=== PATIENT | male | born 1970 | race Caucasian/White ===

== ENCOUNTER 2020-05-09 08:39 | Observation (INO) | payer BC ==
[2020-05-09] MEDS ORDERED: MORPHINE 2 MG/ML SYR IV PRN (09:05)
[2020-05-09] MEDS ORDERED: ONDANSETRON 4 MG/2 ML VIAL IV PRN (09:05)
[2020-05-09] MEDS ORDERED: ACETAMINOPHEN 500 MG TAB PO PRN (09:05)
--- NOTE | 2020-05-09 09:06 | ER ---
Nurse's Notes [facility] Name: Vishnu Pierre Age: 50 yrs Sex: Male : 1970 Arrival Date: 05/09/2020 Time: 08:41 Bed 6 Private MD: Diagnosis: Cellulitis of right lower limb;Fail outpatient therapy Presentation: 05/09 08:49 Chief complaint: Patient states: RLE redness/infection x 10 days. Reports he was on an sv abx and finished it yesterday for cellulitis. Reports that the redness improved but then got worse again. Coronavirus screen: Client denies travel out of the [place] in the last 14 days. At this time, the client does not indicate any symptoms associated with coronavirus-19. Ebola Screen: No symptoms or risks identified at this time. Initial Sepsis Screen: Does the patient meet any 2 criteria? HR > 90 bpm. No. Patient's initial sepsis screen is negative. Does the patient have a suspected source of infection? Yes: Skin breakdown/wound. Risk Assessment: Do you want to hurt yourself or someone else? Patient reports no desire to harm self or others. Onset of symptoms was April 2020. 08:49 Method Of Arrival: Ambulatory sv 08:49 Acuity: PAM 3 sv Triage Assessment: 08:52 General: Appears in no apparent distress. comfortable, obese, well developed, Behavior sv is calm, cooperative, appropriate for age. Pain: Complains of pain in right knee, right sidhu and anterior aspect of right ankle Pain currently is 5 out of 10 on a pain scale. Pain began 10 days ago Is intermittent. Neuro: Level of Consciousness is awake, alert, obeys commands, Oriented to person, place, time, situation, Moves all extremities. Full function Gait is steady. Respiratory: Airway is patent Respiratory effort is even, unlabored, Respiratory pattern is regular, symmetrical. Derm: Skin is pink, warm \T\ dry. redness noted to RLE and swelling. Historical: - Allergies: 08:52 Betadine; sv 08:52 unknown abx; sv - PMHx: 08:52 Diabetes - NIDDM; Hypertension; sv - PSHx: 08:52 Knee surgery; Tonsillectomy; foot; sv - Immunization history:: Adult Immunizations up to date, Last tetanus immunization: up to date. - Social history:: Smoking status: . Screenin:54 Abuse screen: Denies threats or abuse. Denies injuries from another. Nutritional sv screening: No deficits noted. Tuberculosis screening: No symptoms or risk factors identified. Fall Risk None identified. Assessment: 09:25 Reassessment: Patient appears in no apparent distress at this time. No changes from sv previously documented assessment. Patient and/or family updated on plan of care and expected duration. Pain level reassessed. Patient is alert, oriented x 3, equal unlabored respirations, skin warm/dry/pink. 09:39 Reassessment: Ultrasound at the bedside. sv 10:31 Reassessment: Patient appears in no apparent distress at this time. No changes from sv previously documented assessment. Patient and/or family updated on plan of care and expected duration. Pain level reassessed. Patient is alert, oriented x 3, equal unlabored respirations, skin warm/dry/pink. 10:32 Reassessment: Attempted to call report, nurse unavailable. sv Vital Signs: 08:49 BP 141 / 98; Pulse 107; Resp 20; Temp 98.3(O); Pulse Ox 96% ; Weight 124.74 kg; Height sv 6 ft. 1 in. (185.42 cm); Pain 5/10; 10:31 BP 151 / 90; Pulse 87; Resp 18; Pulse Ox 97% ; sv 10:56 BP 132 / 93; Pulse 88; Resp 18; Pulse Ox 99% ; sv 08:49 Body Mass Index 36.28 (124.74 kg, 185.42 cm) sv ED Course: 08:41 Patient arrived in ED. ds1 08:43 Ashley Light RN is Primary Nurse. sv 08:43 Chalo Mendoza MD is Attending Physician. kdr 08:51 Triage completed. sv 08:52 ED physician to see patient. sv 08:52 Arm band placed on. sv 08:54 Patient has correct armband on for positive identification. Bed in low position. Call sv light in reach. Pulse ox on. NIBP on. Door closed. Head of bed elevated. 09:00 Second set of blood cultures drawn by me. sv 09:05 Ny Mondragon MD is Hospitalizing Provider. kdr 09:10 First set of blood cultures drawn by me. Inserted saline lock: 20 gauge in left hand, sv using aseptic technique. Blood collected. Flushed left hand with 5 ml normal saline. 09:29 Chem 7 Sent. sv 09:29 CBC with Diff Sent. sv 09:29 Blood Culture Adult (2) Sent. sv 09:34 Awaiting bed assignment. sv 10:38 No provider procedures requiring assistance completed. Patient admitted, IV remains in sv place. intact. 10:57 US Extremity Venous Unilateral Ltd Sent. sv Administered Medications: 10:27 Drug: LevaQUIN 750 mg Route: PO; sv 10:57 Follow up: Response: No adverse reaction sv 10:27 Drug: vancoMYCIN 1.5 grams Route: IVPB; Rate: calculated rate; Site: left hand; sv 10:57 Follow up: Response: No adverse reaction; IV Status: Infusion continued upon admission sv 10: Drug: TORadol - Ketorolac 15 mg Route: IVP; Site: left hand; sv 10:57 Follow up: Response: No adverse reaction sv Outcome: 09:06 Decision to Hospitalize by Provider. kdr 10:52 Admitted to Med/surg accompanied by tech, via wheelchair, room 408, with chart, Report sv called to [facility] 10:52 Condition: stable 10:52 Instructed on the need for admit. 10:56 Patient left the ED. sv Signatures: Ashley Light RN RN sv Chalo Mendoza MD MD kdr Sanford, Demi ds1
--- NOTE | 2020-05-09 09:06 | EDPHYS ---
Physician Documentation [facility] Name: Vishnu Pierre Age: 50 yrs Sex: Male : 1970 Arrival Date: 05/09/2020 Time: 08:41 Bed 6 Private MD: ED Physician Chalo Mendoza HPI: 05/09 09:07 This 50 yrs old Male presents to ER via Ambulatory with complaints of Leg kdr Pain. 09:07 The patient presents with pain, that is acute, swelling, tenderness. The complaints kdr affect the lateral aspect of right calf, right ankle, right calf, right Achilles, medial aspect of right calf, right sidhu and anterior aspect of right ankle. Context: The problem was sustained at home, resulted from a penetrating injury, States that about two weeks ago he had a thorn in his leg. He began to get infected and he "dug it out" with his pocket knife. Subsequently it began to get more red so he sought treatment in [facility]. His was put on an abx that may have been Clindamycin TID. This morning, he felt the leg was more red, painful and swollen.. 11:31 Onset: The symptoms/episode began/occurred gradually, 2 week(s) ago. Modifying factors: kdr The symptoms are alleviated by nothing. the symptoms are aggravated by movement, weight bearing. Associated signs and symptoms: The patient has no apparent associated signs or symptoms. Treatment prior to arrival includes: prescription medications, Likely Clinda 300 mg PO TID for 10 days. Severity of symptoms: At their worst the symptoms were mild, in the emergency department the symptoms are unchanged. The patient has not experienced similar symptoms in the past. The patient has been recently seen by a physician: [facility] Historical: - Allergies: 08:52 Betadine; sv 08:52 unknown abx; sv - PMHx: 08:52 Diabetes - NIDDM; Hypertension; sv - PSHx: 08:52 Knee surgery; Tonsillectomy; foot; sv - Immunization history:: Adult Immunizations up to date, Last tetanus immunization: up to date. - Social history:: Smoking status: . ROS: 11:31 Constitutional: Negative for fever, chills, and weight loss, Eyes: Negative for injury, kdr pain, redness, and discharge, Neck: Negative for injury, pain, and swelling, Cardiovascular: Negative for chest pain, palpitations, and edema, Respiratory: Negative for shortness of breath, cough, wheezing, and pleuritic chest pain, Abdomen/GI: Negative for abdominal pain, nausea, vomiting, diarrhea, and constipation, Back: Negative for injury and pain, : Negative for injury, bleeding, discharge, and swelling, Neuro: Negative for headache, weakness, numbness, tingling, and seizure activity. Psych: Negative for depression, anxiety, suicide ideation, homicidal ideation, and hallucinations, Allergy/Immunology: Negative for hives, rash, and allergies, Endocrine: Negative for neck swelling, polydipsia, polyuria, polyphagia, and marked weight changes, Hematologic/Lymphatic: Negative for swollen nodes, abnormal bleeding, and unusual bruising. 11:31 MS/extremity: Positive for erythema, pain, swelling, tenderness, warmth. Exam: 11:31 Constitutional: This is a well developed, well nourished patient who is awake, alert, kdr and in no acute distress. Head/Face: Normocephalic, atraumatic. Eyes: Pupils equal round and reactive to light, extra-ocular motions intact. Lids and lashes normal. Conjunctiva and sclera are non-icteric and not injected. Cornea within normal limits. Periorbital areas with no swelling, redness, or edema. Neck: Trachea midline, no thyromegaly or masses palpated, and no cervical lymphadenopathy. Supple, full range of motion without nuchal rigidity, or vertebral point tenderness. No Meningismus. Chest/axilla: Normal chest wall appearance and motion. Nontender with no deformity. No lesions are appreciated. Cardiovascular: Regular rate and rhythm with a normal S1 and S2. No gallops, murmurs, or rubs. Normal PMI, no JVD. No pulse deficits. Respiratory: Lungs have equal breath sounds bilaterally, clear to auscultation and percussion. No rales, rhonchi or wheezes noted. No increased work of breathing, no retractions or nasal flaring. Abdomen/GI: Soft, non-tender, with normal bowel sounds. No distension or tympany. No guarding or rebound. No evidence of tenderness throughout. Back: No spinal tenderness. No costovertebral tenderness. Full range of motion. Neuro: Awake and alert, GCS 15, oriented to person, place, time, and situation. Cranial nerves II-XII grossly intact. Motor strength 5/5 in all extremities. Sensory grossly intact. Cerebellar exam normal. Normal gait. Psych: Awake, alert, with orientation to person, place and time. Behavior, mood, and affect are within normal limits. 11:31 Musculoskeletal/extremity: Extremities: grossly normal except: noted in the lateral aspect of right calf, right ankle, right calf, right Achilles, medial aspect of right calf, right sidhu and anterior aspect of right ankle: ROM: no acute changes, Circulation is intact in all extremities. Sensation intact. Weight bearing: able to fully bear weight, mild pain with walking. Vital Signs: 08:49 BP 141 / 98; Pulse 107; Resp 20; Temp 98.3(O); Pulse Ox 96% ; Weight 124.74 kg; Height sv 6 ft. 1 in. (185.42 cm); Pain 5/10; 10:31 BP 151 / 90; Pulse 87; Resp 18; Pulse Ox 97% ; sv 10:56 BP 132 / 93; Pulse 88; Resp 18; Pulse Ox 99% ; sv 08:49 Body Mass Index 36.28 (124.74 kg, 185.42 cm) sv MDM: 09:06 Patient medically screened. kdr 11:31 Data reviewed: vital signs, nurses notes, old medical records, radiologic studies. kdr Counseling: I had a detailed discussion with the patient and/or guardian regarding: the historical points, exam findings, and any diagnostic results supporting the discharge/admit diagnosis, lab results, radiology results, the need for further work-up and treatment in the hospital. 05/09 09:01 Order name: Blood Culture Adult (2) kdr 05/09 09:01 Order name: CBC with Diff kdr 05/09 09:01 Order name: Chem 7 kdr 05/09 09:01 Order name: US Extremity Venous Unilateral Ltd kdr 05/09 09:28 Order name: CBC with Automated Diff; Complete Time: 11:37 EDMS 05/09 09:38 Order name: Basic Metabolic Panel; Complete Time: 11:37 EDMS 05/09 10:06 Order name: US; Complete Time: 11:37 EDMS Administered Medications: : Drug: LevaQUIN 750 mg Route: PO; sv 10:57 Follow up: Response: No adverse reaction sv 10:27 Drug: vancoMYCIN 1.5 grams Route: IVPB; Rate: calculated rate; Site: left hand; sv 10:57 Follow up: Response: No adverse reaction; IV Status: Infusion continued upon admission sv 10:27 Drug: TORadol - Ketorolac 15 mg Route: IVP; Site: left hand; sv 10:57 Follow up: Response: No adverse reaction sv Disposition: 05/09/20 09:06 Hospitalization ordered by Ny Mondragon for Observation. Preliminary diagnosis are Cellulitis of right lower limb, Fail outpatient therapy. - Bed requested for Telemetry/MedSurg (observation). - Status is Observation. sv - Condition is Fair. - Problem is an ongoing problem. - Symptoms have worsened. Signatures: Dispatcher [employer] Ashley Bain RN RN sv Rittger, Kevin, MD MD [facility] Tiffany Fajardo RN RN Lesvia Escamilla Corrections: (The following items were deleted from the chart) 10:29 09:06 Hospitalization Ordered by Ny Mondragon MD for Observation. Preliminary eb diagnosis is Cellulitis of right lower limb; Fail outpatient therapy. Bed requested for Telemetry/MedSurg (observation). Status is Observation. Condition is Fair. Problem is an ongoing problem. Symptoms have worsened. kdr 10:56 10:29 05/09/2020 09:06 Hospitalization Ordered by Ny Mondragon MD for Observation. sv Preliminary diagnosis is Cellulitis of right lower limb; Fail outpatient therapy. Bed requested for Telemetry/MedSurg (observation). Status is Observation. Condition is Fair. Problem is an ongoing problem. Symptoms have worsened. eb
[2020-05-09] MEDS ORDERED: VANCOMYCIN/NS 1 gm 1 GM/250 ML BAG IVPB SCH (09:15)
[2020-05-09 09:25] LABS: Absolute Lymphocytes (CBC) 1.4 K/uL (0.7-4.9); Hematocrit 44.6 % (39.6-49.0); Lymphocytes % 32.3 % (15.3-44.8); MPV 8.9 fL (7.6-11.3); RBC Red Blood Cell Count 5.14 M/uL (4.33-5.43)
[2020-05-09] MEDS ORDERED: levoFLOXacin 750 MG TAB ONE (09:30)
[2020-05-09] MEDS ORDERED: KETOROLAC 30 MG/ML INJ ONE (09:31)
[2020-05-09 09:38] LABS: Potassium 3.7 mmol/L (3.5-5.1)
[2020-05-09] MEDS: Levofloxacin500mg IV 500 MG/100 ML BAG IV SCH (10:00)
[2020-05-09] MEDS ORDERED: VANCOMYCIN 1.5 GM in NA CHLORIDE 0.9% 500 ML IVPB ONE (10:00)
--- NOTE | 2020-05-09 10:06 | RAD REPORT ---
EXAM DESCRIPTION: US - Extremity Venous Uni Ltd - 05/09/2020 10:00 am CLINICAL HISTORY: Pain;Swellingright leg COMPARISON: None. TECHNIQUE: Real-time sonographic evaluation of the right lower extremity deep venous systems was per formed. FINDINGS: Normal compressibility, flow augmentation, phasic flow and spontaneous flow are identified in the right lower extremity common femoral, superficial femoral, popliteal and posterior tibial vei ns. No intraluminal filling defects seen. IMPRESSION: No DVT in the right lower extremity.
[2020-05-09 12:00] VITALS: BMI 36.3
[2020-05-09] MEDS ORDERED: INSULIN 70/30 100 UNITS/ML SQ ONE (12:58)
[2020-05-09] MEDS ORDERED: D50W 25 GM/50 ML SYRINGE/VIAL IV PRN ×2 (12:58→21:00)
[2020-05-09] MEDS ORDERED: VANCOMYCIN 500 MG in NA CHLORIDE 0.9% 100 ML IVPB SCH (13:00)
[2020-05-09] MEDS ORDERED: PNEUMOCOCCAL VACCINE 0.5 ML IMVAC ONE (14:00)
[2020-05-09] MEDS ORDERED: FUROSEMIDE 40 MG/4 ML VIAL IV ONE (15:28)
--- NOTE | 2020-05-09 16:37 | P.HP ---
Certification for Inpatient Patient admitted to: Observation With expected LOS: <2 Midnights Patient will require the following post-hospital care: None Practitioner: I am a practitioner with admitting privileges, knowledge of patient current condition, hospital course, and medical plan of care. Services: Services provided to patient in accordance with Admission requirements found in Title 42 Section 412.3 of the Code of Federal Regulations Patient History Date of Service: 05/09/20 Reason for admission: Right lower extremity cellulitis History of Present Illness: Patient is a 50-year-old gentleman who has a history of diabetes and a recent diagnosis of cellulitis of the right leg. He apparently had a towards and is right GN and he was that of find it for a couple weeks. When he is able to find it he had developed a slight infection. He used a knife to get the the thorn out in hopes that the infection would clear up. However, a got significantly worse. He went to the [facility] and they gave him clindamycin. The clindamycin help get rid of some of the erythema. He was doing better and he had finished his last dose yesterday. However, his right lower extremity started swelling up. It also started getting more erythematous. Patient decided to go to the emergency room. Patient had a venous Doppler performed. Doppler in the emergency room was negative. Patient has some mild cellulitis with significant edema. Will diurese him. Most likely cause of the edema is most likely venous insufficiency. Venous Dopplers did not really evaluate iliac vein thrombus is well so if the edema does not improve with diuresing then we may need to do further studies to investigate the iliac vein. He does admit to taking more Celebrexs than normal. Will check a UA with microscopy to evaluate for proteinuria. If it is significantly elevated then may need further workup for nephrotic syndrome. BNP level is pending. Patient will be admitted to the hospital for cellulitis of the right lower extremity with surrounding edema. Allergies povidone-iodine [From Betadine] Allergy (Verified 05/09/20 11:41) Hives/Rash soap [From Betadine] Allergy (Verified 05/09/20 10:35) Hives/Rash Home Medications: Allopurinol 300 mg PO DAILY 05/09/20 Celecoxib [Celebrex] 100 mg PO DAILY 05/09/20 Cetirizine HCl [Zyrtec*] 5 mg PO BEDTIME 05/09/20 Citalopram [Celexa*] 10 mg PO DAILY 05/09/20 Insulin Glargine,Hum.rec.anlog [Basaglar Kwikpen U-100] 80 unit SQ BEDTIME 05/09/20 Insulin Lispro [Humalog*] 60 unit SQ TIDWM 05/09/20 Loratadine [Claritin] 10 mg PO DAILY 05/09/20 Losartan Potassium [Cozaar] 100 mg PO DAILY 05/09/20 Metformin HCl 1,000 mg PO BID 05/09/20 Omeprazole 20 mg PO DAILY 05/09/20 Pioglitazone HCl [Actos] 15 mg PO DAILY 05/09/20 Rosuvastatin Calcium [Crestor] 10 mg PO DAILY 05/09/20 Sitagliptin Phosphate [Januvia*] 100 mg PO DAILY 05/09/20 hydroCHLOROthiazide [Hydrochlorothiazide] 25 mg PO DAILY 05/09/20 - Past Medical/Surgical History Has patient received pneumonia vaccine in the past: No Diabetic: Yes -: IDDM since 2012 -: obesity -: surgery on left foot -: Bilateral knee replacement -: Tonsillectomy - Family History Mother Medical History: Heart disease, Diabetes Father Medical History: Cancer - Social History Smoking Status: Never smoker Alcohol use: No CD- Drugs: No Caffeine use: Yes Place of Residence: Home Review of Systems 10-point ROS is otherwise unremarkable Physical Examination - Vital Signs Temperature: 97.6 F Blood Pressure: 150/82 Pulse: 91 Respirations: 16 Pulse Ox (%): 95 - Physical Exam General: Alert, In no apparent distress, Oriented x3 HEENT: Atraumatic, PERRLA, Mucous membr. moist/pink, EOMI, Sclerae nonicteric Neck: Supple, 2+ carotid pulse no bruit, No LAD, Without JVD or thyroid abnormality Respiratory: Clear to auscultation bilaterally, Normal air movement Cardiovascular: Regular rate/rhythm, Normal S1 S2, No murmurs Gastrointestinal: Normal bowel sounds, Soft and benign, Non-distended, No tenderness Musculoskeletal: No clubbing, Swelling, Erythema, Tenderness Integumentary: No rashes, Tenderness/swelling, Erythema, Warmth Neurological: Normal gait, Normal speech, Normal strength at 5/5 x4 extr, Normal tone, Sensation intact, Cranial nerves 3-12 intact, Normal affect Lymphatics: No axilla or inguinal lymphadenopathy - Studies Laboratory Data (last 24 hrs) 05/09/20 09:10: Sodium 140, Potassium 3.7, BUN 20 H, Creatinine 0.94, Glucose 316 H 05/09/20 09:10: WBC 4.3, Hgb 15.4, Hct 44.6, Plt Count 128 L Assessment & Plan - Problems (Diagnosis) (1) Cellulitis of right lower extremity Current Visit: Yes Status: Acute (2) Bilateral lower extremity edema Current Visit: Yes Status: Acute (3) History of diabetes mellitus, type II Current Visit: Yes Status: Acute (4) Morbid obesity Current Visit: Yes Status: Acute (5) Encounter for monitoring West-2 selective NSAID therapy Current Visit: Yes Status: Acute - Plan 1. Continue with IV antibiotic; you recent clindamycin use it. Monitor for diarrhea 2. Continue with diuresing 3. Check BNP and urine with microscopy 4. Made need thyroid studies 5. Monitor CBC 6. Strict blood sugar monitoring; check hemoglobin A1c 7. Pain control 8. GI and DVT prophylaxis Discharge Plan: Home Plan to discharge in: 24 Hours - Advance Directives Does patient have a Living Will: No Does patient have a Durable POA for Healthcare: No - Code Status/Comfort Care Code Status Assessed: Yes Code Status: Full Code Critical Care: No Time Spent Managing PTS Care (In Minutes): 45
[2020-05-09 18:25] LABS: Urine Appearance CLEAR; Urine Bilirubin NEGATIVE (NEG); Urine Blood NEGATIVE (NEG); Urine Color YELLOW; Urine Glucose 1+ (NEG); Urine Protein NEGATIVE (NEG); Urine Urobilinogen 0.2 mg/dL (0.2-1.0)
[2020-05-09 19:12] LABS: Urine Bacteria NONE SEEN /HPF (NONE SEEN); Urine Culture Reflex Order NOT NEEDED; Urine RBC NONE SEEN /HPF (NONE SEEN)
[2020-05-09] MEDS: FUROSEMIDE 40 MG/4 ML VIAL IV SCH (20:07)
[2020-05-09] MEDS: METFORMIN HCL 500 MG TAB PO SCH (20:07)
[2020-05-09] MEDS ORDERED: CETIRIZINE HCL 5 MG TABLET PO SCH (21:00)
[2020-05-09] MEDS ORDERED: INSULIN GLARGINE HUM REC ANLOG 80 UNIT SQ SCH (21:00)
[2020-05-09] MEDS ORDERED: GLUCAGON 1 MG/VIAL IM PRN (21:00)
[2020-05-09] MEDS ORDERED: INSULIN GLARGINE 100 UNITS/ML SQ SCH (21:00)
[2020-05-09] MEDS: INSULIN -REGULAR HUMAN 50 UNIT/0.5 ML ML SQ SCH (21:22)
[2020-05-10] MEDS ORDERED: VANCOMYCIN 2 GM in NA CHLORIDE 0.9% 500 ML IVPB SCH (01:00)
[2020-05-10 04:15] VITALS: BP 168/81; TEMP 97
[2020-05-10 05:43] LABS: Absolute Lymphocytes (CBC) 1.7 K/uL (0.7-4.9); Basophils % 0.7 % (0-1.3); Hematocrit 41.7 % (39.6-49.0); Lymphocytes % 38.1 % (15.3-44.8); MPV 8.4 fL (7.6-11.3); RBC Red Blood Cell Count 4.81 M/uL (4.33-5.43)
[2020-05-10 05:56] LABS: Albumin 3.4 g/dL (3.4-5.0); Bilirubin Total 0.4 mg/dL (0.2-1.0); Magnesium 1.8 mg/dL (1.8-2.4); Potassium 3.5 mmol/L (3.5-5.1); Protein, Total 6.8 g/dL (6.4-8.2)
[2020-05-10 06:01] LABS: Protime INR 1.03
[2020-05-10] MEDS ORDERED: PANTOPRAZOLE 40MG TABLET PO SCH (06:30)
--- NOTE | 2020-05-10 07:43 | P.DS ---
Admission Date: 05/09/20 Discharge Date: 05/10/20 Primary Care Provider: none Disposition: ROUTINE DISCHARGE Discharge Condition: GOOD Reason for Admission: Right lower extremity cellulitis Consultations: none Procedures: Venous doppler: FINDINGS: Normal compressibility, flow augmentation, phasic flow and spontaneous flow are identified in the right lower extremity common femoral, superficial femoral, popliteal and posterior tibial veins. No intraluminal filling defects seen. IMPRESSION: No DVT in the right lower extremity. 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 He noted the infection for the last couple of days. He felt that a thorn was in the area. He had been using a knife to get the the thorn out in hope of clearing out the infection. He went to the [facility] and they gave him clindamycin. The clindamycin help get rid of some of the erythema. He was doing better and he had finished his last dose yesterday. However, his right lower extremity started swelling up. It also started getting more erythema. Patient decided to go to the emergency room. Patient had a venous Doppler performed. Doppler in the emergency room was negative. Patient has some mild cellulitis with significant edema. Patient admitted for further evaluation and treatment. Hospital Course: Patient presented with right lower extremity cellulitis. Patient failed outpatient treatment. Patient had been given clindamycin. Patient admitted for further evaluation and treatment. Patient has done well with IV antibiotic therapy. Erythema has significantly improved. Swelling also has improved. Patient likely with underlying venous insufficiency. At discharge no significant swelling or erythema noted. At discharge patient will continue with Augmentin 875 mg 1 pill twice daily and doxycycline 100 mg twice daily for 10 days. Patient will also be provided Bactroban ointment to apply to the nares, umbilicus and right lower extremity twice daily. Patient should clean area with antibacterial soap and water daily. Recommend follow up with PCP to follow up this hospitalization and monitor resolution. Education on cellulitis and venous insufficiency will be provided. Recommend to return back to work after 5 days. He is to keep the leg elevated when sitting or lying. Patient may benefit with compression stockings to help with venous insufficiency. If worse patient may benefit with venous insufficiency specialist evaluation. This can be done as an outpatient. Patient with diabetes mellitus type 2 insulin-dependent with noted hyperglycemia. A1c 9.8. Patient needs better diabetic control. Patient may continue with his current regimen of insulin therapy including Basuglar 80 units subcu at bedtime and fast acting insulin lispro 60 units 3 times a day. Patient also takes metformin 1000 mg 1 pill twice daily and Januvia 100 mg daily, this can be continued. Will recommend to discontinue Actos as this may increased swelling to the lower extremities.. Recommend to monitor blood sugar at least twice daily. Recommend to maintain blood sugar less than 140 fasting and less than 200 after meals. If blood sugar remains above 200, recommend to follow up or call PCP for further instructions. Adjustment in medication may be required. This can be done with the help of PCP. Recommend follow up with PCP to further monitor and address Diabetes for better control. Patient with hypertension. This has remained stable. At discharge patient will continue with losartan 100 mg 1 pill once daily and hydrochlorothiazide 25 mg daily. Recommend to monitor blood pressure daily. Patient should keep a log of blood pressures to further address with PCP. Recommend to maintain blood pressure less 150/80. Further adjustment may be required if taking medication. This can be done with the help of PCP. May need to hold medication if blood pressure less than 100 systolic. Recommend follow up with PCP to further monitor and address hypertension for better control. Patient with hyperlipidemia. At discharge patient will continue with his current medication Crestor 10 mg daily. Patient with elevated liver function. Patient likely with underlying fatty liver. Hepatitis panel obtained. This can be followed up as an outpatient. Recommend to recheck lab-CMP in 2-4 weeks to monitor resolution or progress. If liver function remains elevated recommend GI evaluation for further evaluation. Patient with depression. At discharge he will continue with his current medication. Patient with history of gout. At discharge patient may continue with allopurinol 300 mg daily. Recommend to discontinue Celebrex and limit the use of nonsteroidal anti-inflammatories. Patient with GERD. At discharge patient will continue with Prilosec 20 mg daily. Patient with chronic allergic rhinitis. Patient may take either Zyrtec or Claritin as needed. Patient with obesity, BMI 36.3. Lifestyle modification education provided. Vital Signs/Physical Exam: Temp Pulse Resp BP Pulse Ox 97 F 64 16 168/81 H 97 05/10/20 04:00 05/10/20 04:00 05/10/20 04:00 05/10/20 04:00 05/10/20 04:00 General: Alert, In no apparent distress, Oriented x3, Cooperative HEENT: Atraumatic Neck: Supple Respiratory: Clear to auscultation bilaterally, Normal air movement Cardiovascular: Normal pulses, Regular rate/rhythm Gastrointestinal: Normal bowel sounds, Soft and benign, Non-distended, No tenderness, No masses, No rebound, No guarding Integumentary: Other (No significant erythema to the RLE. Swelling improved. No exudate or significant breakdown. ) Neurological: Normal speech, Normal strength at 5/5 x4 extr, Normal tone, Normal affect Laboratory Data at Discharge: WBC 4.5 K/uL (4.3-10.9) 05/10/20 05:26 Hgb 14.7 g/dL (13.6-17.9) 05/10/20 05:26 Hct 41.7 % (39.6-49.0) 05/10/20 05:26 Plt Count 124 K/uL (152-406) L 05/10/20 05:26 PT 12.1 SECONDS (9.5-12.5) 05/10/20 05:26 INR 1.03 05/10/20 05:26 APTT 41.8 SECONDS (24.3-36.9) H 05/10/20 05:26 Sodium 143 mmol/L (136-145) 05/10/20 05:26 Potassium 3.5 mmol/L (3.5-5.1) 05/10/20 05:26 BUN 17 mg/dL (7-18) 05/10/20 05:26 Creatinine 0.90 mg/dL (0.55-1.3) 05/10/20 05:26 Glucose 153 mg/dL (74-106) H 05/10/20 05:26 Phosphorus 4.0 mg/dL (2.5-4.9) 05/10/20 05:26 Magnesium 1.8 mg/dL (1.8-2.4) 05/10/20 05:26 Total Bilirubin 0.4 mg/dL (0.2-1.0) 05/10/20 05:26 AST 16 U/L (15-37) 05/10/20 05:26 ALT 33 U/L (12-78) 05/10/20 05:26 Alkaline Phosphatase 62 U/L (45-117) 05/10/20 05:26 Home Medications: Allopurinol 300 mg PO DAILY 05/09/20 Cetirizine HCl [Zyrtec*] 5 mg PO BEDTIME 05/09/20 Citalopram [Celexa*] 10 mg PO DAILY 05/09/20 Insulin Glargine,Hum.rec.anlog [Basaglar Kwikpen U-100] 80 unit SQ BEDTIME 05/09/20 Insulin Lispro [Humalog*] 60 unit SQ TIDWM 05/09/20 Losartan Potassium [Cozaar] 100 mg PO DAILY 05/09/20 Metformin HCl 1,000 mg PO BID 05/09/20 Omeprazole 20 mg PO DAILY 05/09/20 Rosuvastatin Calcium [Crestor] 10 mg PO DAILY 05/09/20 Sitagliptin Phosphate [Januvia*] 100 mg PO DAILY 05/09/20 hydroCHLOROthiazide [Hydrochlorothiazide] 25 mg PO DAILY 05/09/20 Amoxicillin/Potassium Clav [Augmentin 875-125 Tablet] 1 each PO BID #20 tablet 05/10/20 Doxycycline Hyclate 100 mg PO BID #20 tablet 05/10/20 Mupirocin Oint [Bactroban 2% Ointment] 8 appl TOP SEECOM #1 tube 05/10/20 New Medications: Amoxicillin/Potassium Clav [Augmentin 875-125 Tablet] 1 each PO BID #20 tablet Mupirocin Oint [Bactroban 2% Ointment] 8 appl TOP SEECOM #1 tube Doxycycline Hyclate 100 mg PO BID #20 tablet Patient Discharge Instructions: 1. Recommend follow up with PCP in 1 week to follow up this hospitalization. 2. Patient presented with right lower extremity cellulitis. Patient failed outpatient treatment. Patient had been given clindamycin. Patient admitted for further evaluation and treatment. Patient has done well with IV antibiotic therapy. Erythema has significantly improved. Swelling also has improved. Patient likely with underlying venous insufficiency. At discharge no significant swelling or erythema noted. At d ischarge patient will continue with Augmentin 875 mg 1 pill twice daily and doxycycline 100 mg twice daily for 10 days. Patient will also be provided Bactroban ointment to apply to the nares, umbilicus and right lower extremity twice daily. Patient should clean area with antibacterial soap and water daily. Recommend follow up with PCP to follow up this hospitalization and monitor resolution. Education on cellulitis and venous insufficiency will be provided. Recommend to return back to work after 5 days. He is to keep the leg elevated when sitting or lying. Patient may benefit with compression stockings to help with venous insufficiency. If worse patient may benefit with venous insufficiency specialist evaluation. This can be done as an outpatient. 3. Patient with diabetes mellitus type 2 insulin-dependent with noted hyperglycemia. A1c 9.8. Patient needs better diabetic control. Patient may continue with his current regimen of insulin therapy including Basuglar 80 units subcu at bedtime and fast acting insulin lispro 60 units 3 times a day. Patient also takes metformin 1000 mg 1 pill twice daily and Januvia 100 mg daily, this can be continued. Will recommend to discontinue Actos as this may increased swelling to the lower extremities.. Recommend to monitor blood sugar at least twice daily. Recommend to maintain blood sugar less than 140 fasting and less than 200 after meals. If blood sugar remains above 200, recommend to follow up or call PCP for further instructions. Adjustment in medication may be required. This can be done with the help of PCP. Recommend follow up with PCP to further monitor and address Diabetes for better control. 4. Patient with hypertension. This has remained stable. At discharge patient will continue with losartan 100 mg 1 pill once daily and hydrochlorothiazide 25 mg daily. Recommend to monitor blood pressure daily. Patient should keep a log of blood pressures to further address with PCP. Recommend to maintain blood pressure less 150/80. Further adjustment may be required if taking medication. This can be done with the help of PCP. May need to hold medication if blood pressure less than 100 systolic. Recommend follow up with PCP to further monitor and address hypertension for better control. 5. Patient with hyperlipidemia. At discharge patient will continue with his current medication Crestor 10 mg daily. 6. Patient with elevated liver function. Patient likely with underlying fatty liver. Hepatitis panel obtained. This can be followed up as an outpatient. Recommend to recheck lab-CMP in 2-4 weeks to monitor resolution or progress. If liver function remains elevated recommend GI evaluation for further evaluation. 7. Patient with depression. At discharge he will continue with his current medication. 8. Patient with history of gout. At discharge patient may continue with allopurinol 300 mg daily. Recommend to discontinue Celebrex and limit the use of nonsteroidal anti-inflammatories. 9. Patient with GERD. At discharge patient will continue with Prilosec 20 mg daily. 10. Patient with chronic allergic rhinitis. Patient may take either Zyrtec or Claritin as needed. 11. Patient with obesity, BMI 36.3. Lifestyle modification education provided. Diet: ADA Activity: Ad oscar Time spent managing pt's care (in minutes): 55
[2020-05-10 08:14] VITALS: O2SAT 99
[2020-05-10] MEDS: METFORMIN HCL 500 MG TAB PO SCH (08:18)
[2020-05-10] MEDS: INSULIN -REGULAR HUMAN 50 UNIT/0.5 ML ML SQ SCH (08:19)
[2020-05-10] MEDS: FUROSEMIDE 40 MG/4 ML VIAL IV SCH ×2 (08:20)
[2020-05-10] MEDS ORDERED: allopurinoL 300 MG TAB PO SCH (09:00)
[2020-05-10] MEDS ORDERED: CITALOPRAM 10 MG TABLET PO SCH (09:00)
[2020-05-10] MEDS ORDERED: SITAGLIPTIN PHOS 100 MG TAB PO SCH (09:00)
[2020-05-10] MEDS ORDERED: ROSUVASTATIN 10 MG TAB PO SCH (09:00)
[2020-05-10] MEDS ORDERED: LOSARTAN POTASSIUM 50 MG TABLET PO SCH (09:00)
[2020-05-10] MEDS ORDERED: LORATADINE 10 MG TAB PO SCH (09:00)
[2020-05-10] MEDS: Levofloxacin500mg IV 500 MG/100 ML BAG IV SCH (09:20)
== END 2020-05-10 10:45 | disposition home or self-care (01) ==
LOC: ER 08:39 → 4TH 10:36
PROVIDERS: ADMIT Hospitalist; ATTEND Family Medicine
DX: L03.115 Cellulitis of right lower limb (principal); E11.65 Type 2 diabetes mellitus with hyperglycemia; I10 Essential (primary) hypertension; E78.5 Hyperlipidemia, unspecified; R74.8 Abnormal levels of other serum enzymes; F32.9 Major depressive disorder, single episode, unspecified; M10.9 Gout, unspecified; K21.9 Gastro-esophageal reflux disease without esophagitis; E66.9 Obesity, unspecified; Z68.36 Body mass index [BMI] 36.0-36.9, adult; Z20.828 Contact with and (suspected) exposure to other viral communicable diseases; Z79.4 Long term (current) use of insulin; J30.9 Allergic rhinitis, unspecified; Z96.653 Presence of artificial knee joint, bilateral; R22.43 Localized swelling, mass and lump, lower limb, bilateral
CPT/HCPCS: 96365; 87040 ×2; 85025 ×2; 81001; 80048; 36415; 83735; 84100; 85610; 82947 ×4; 85730; 83036; 80053; 83880; 90471; 93971; 90670; 96375; 99285; U0002; J1940 ×4; J3370 ×2; J7040 ×2; G0378 ×3; J1815